=== PATIENT | male | born 1990 | race Caucasian/White ===

== ENCOUNTER 2022-08-27 21:21 | Emergency (ER) | payer BC, MEDICAID ==
[~2022-08-27] VITALS: Ht 180.3 cm; Wt 91.0 kg
[2022-08-27] MEDS: HYDROCODONE/ACETAMINOPHEN 10/325MG TABLET PO ONE ×2 (22:55→22:57)
[2022-08-27] MEDS ORDERED: IBUPROFEN 600MG TABLET PO ONE (23:00)
[2022-08-27] MEDS ORDERED: IBUP-2029 MT (23:26)
[2022-08-28 00:06] VITALS: BP 127/79
== END 2022-08-28 00:37 | disposition home or self-care (01) ==
LOC: ER 22:32
DX: S82.431A Displaced oblique fracture of shaft of right fibula, initial encounter for closed fracture (principal); F10.10 Alcohol abuse, uncomplicated; Y90.9 Presence of alcohol in blood, level not specified; W10.8XXA Fall (on) (from) other stairs and steps, initial encounter; Y93.89 Activity, other specified; Y92.59 Other trade areas as the place of occurrence of the external cause; Y99.8 Other external cause status
CPT/HCPCS: 29505; 73590; 73610; 73630; 99284